=== PATIENT | male | born 1965 | race Hispanic/Latino ===

== ENCOUNTER 2020-02-11 15:18 | Inpatient (IN) | payer SELFPAY ==
[~2020-02-11] VITALS: Ht 175.3 cm; Wt 122.5 kg
[2020-02-11 15:53] LABS: BASOPHILS % (AUTO) 0.3 % (0.0-5.0); EOSINOPHILS % (AUTO) 3.2 % (0.0-8.0); HEMATOCRIT 44.6 % (42-54); LYMPHOCYTES % (AUTO) 27.7 % (21.0-51.0); MEAN CORPUSCULAR HEMOGLOBIN 29.5 pg (27.0-33.0); MEAN CORPUSCULAR HGB CONC 33.6 g/dL (32.0-36.0); MEAN CORPUSCULAR VOLUME 87.8 fL (79-99); MONOCYTES % (AUTO) 8.1 % (3.0-13.0); NEUTROPHILS % (AUTO) 60.4 % (40.0-77.0); PLATELET COUNT (AUTO) 213 K/uL (130-400); RED BLOOD CELL COUNT(AUTO) 5.08 MIL/uL (4.50-6.20); RED CELL DISTRIBUTION WIDTH 12.6 % (11.0-15.5); WHITE BLOOD COUNT (AUTO) 7.8 K/uL (4.8-10.8)
[2020-02-11] MEDS ORDERED: LABETALOL 20 MG/4 ML DISP.SYRIN IV ONE (16:00)
[2020-02-11 16:12] LABS: INR 0.92 (0.85-1.15)
[2020-02-11 16:14] LABS: ALBUMIN 3.9 g/dL (3.5-5.0); BILIRUBIN,TOTAL 0.4 mg/dL (0.2-1.0); TOTAL PROTEIN, SERUM 8.3 g/dL (6.0-8.3)
[2020-02-11 16:47] LABS: APPEARANCE,URINE Clear (CLEAR); BILIRUBIN,URINE Negative (NEGATIVE); COLOR,URINE Yellow (YELLOW); GLUCOSE, URINE (UA) Negative (NEGATIVE); KETONES,URINE Negative (NEGATIVE); LEUKOCYTE ESTERASE ,URINE Negative (NEGATIVE); NITRATE,URINE Negative (NEGATIVE); OCCULT BLOOD,URINE Negative (NEGATIVE); PH,URINE 6.5 (5.0-8.0); PROTEIN,URINE Negative (NEGATIVE)
[2020-02-11] MEDS ORDERED: ASPIRIN 325 MG TABLET ONE (18:01)
[2020-02-11] MEDS ORDERED: ATORVASTATIN CALCIUM 20 MG TABLET PO SCH (18:45)
[2020-02-11] MEDS ORDERED: CLOPIDOGREL BISULFATE 75 MG TAB PO SCH (18:45)
[2020-02-11] MEDS ORDERED: NITROGLYCERIN 0.4 MG SL TAB SL PRN (19:00)
[2020-02-11] MEDS ORDERED: ONDANSETRON HCL 4 MG/2 ML VIAL IV PRN (19:00)
[2020-02-11] MEDS ORDERED: ACETAMINOPHEN 325 MG TAB PO PRN (19:00)
[2020-02-11] MEDS ORDERED: LACTULOSE 20 GM/30 ML UDCUP PO PRN (19:00)
[2020-02-11 19:07] LABS: AMPHET/METH SCREEN,URINE NEGATIVE (NEGATIVE); BARBITURATE SCREEN, URINE NEGATIVE (NEGATIVE); BENZODIAZEPINES SCREEN,URINE NEGATIVE (NEGATIVE); CANNABINOID SCREEN,URINE NEGATIVE (NEGATIVE); COCAINE SCREEN,URINE NEGATIVE (NEGATIVE); OPIATE SCREEN,URINE NEGATIVE (NEGATIVE); PHENCYCLIDINE SCREEN,URINE NEGATIVE (NEGATIVE)
[2020-02-11] MEDS ORDERED: ATORVASTATIN CALCIUM 40 MG TABLET ONE (21:15)
[2020-02-11] MEDS ORDERED: HYDRALAZINE HCL 20 MG/ML VIAL IV PRN (21:30)
--- NOTE | 2020-02-11 22:30 | NUR ---
PT ARRIVED TO ROOM 228 VIA WHEELCHAIR. DENIES ANY CHEST PAIN. PT HAS LEFT SIDED WEAKNESS. BED TO LOWEST LEVEL. APPLIED YELLOW BRACELET FOR FALL RISK D/T PT STATED HE FELL DOWN THURSDAY 02/08 AND TODAY 02/10 D/T THE LEFT SIDED WEAKNESS. CALL LIGHT WITHIN REACH. BP 159/82 SINUS FRAN 50s.
--- NOTE | 2020-02-11 23:00 | NUR ---
NO HOME MEDS.
[2020-02-12] VITALS (7 sets, daily range): BP systolic 138–180; BP diastolic 74–89
--- NOTE | 2020-02-12 04:00 | NUR ---
BP 189/80 SINUS FARN 50s APRESOLINE 10MG/0.5ML GIVEN VIA IV LINE. PT DENIES ANY DIZZINESS, DENIES ANY CHEST PAIN. PT STATES HE HEARS RINGING IN HIS EARS.
[2020-02-12 04:25] LABS: BASOPHILS % (AUTO) 0.4 % (0.0-5.0); EOSINOPHILS % (AUTO) 2.6 % (0.0-8.0); HEMATOCRIT 42.4 % (42-54); LYMPHOCYTES % (AUTO) 33.9 % (21.0-51.0); MEAN CORPUSCULAR HEMOGLOBIN 29.1 pg (27.0-33.0); MEAN CORPUSCULAR VOLUME 88.1 fL (79-99); MONOCYTES % (AUTO) 6.5 % (3.0-13.0); NEUTROPHILS % (AUTO) 56.5 % (40.0-77.0); PLATELET COUNT (AUTO) 198 K/uL (130-400); RED BLOOD CELL COUNT(AUTO) 4.81 MIL/uL (4.50-6.20); RED CELL DISTRIBUTION WIDTH 12.8 % (11.0-15.5); WHITE BLOOD COUNT (AUTO) 8.2 K/uL (4.8-10.8)
[2020-02-12] MEDS: ATORVASTATIN CALCIUM 40 MG TABLET PO SCH ×2 (04:30→20:07)
[2020-02-12] MEDS: FAMOTIDINE/PF 20 MG/2 ML VIAL IV SCH ×3 (04:30→20:07)
[2020-02-12 04:36] LABS: HEMOGLOBIN A1C 5.7 % (4.0-6.0)
[2020-02-12 04:46] LABS: ALBUMIN 3.7 g/dL (3.5-5.0); BILIRUBIN,TOTAL 0.5 mg/dL (0.2-1.0); CREATININE 0.8 mg/dL (0.5-1.5); POTASSIUM 3.7 mmol/L (3.5-5.1); THYROID STIMULATING HORMONE 0.04 uIU/mL (0.36-3.74); TOTAL PROTEIN, SERUM 7.9 g/dL (6.0-8.3)
--- NOTE | 2020-02-12 05:00 | NUR ---
BP 158/80 SINUS FRAN 50s ASYMPTOMATIC
[2020-02-12] MEDS ORDERED: ASPIRIN 81MG TAB.CHEW PO SCH (09:00)
--- NOTE | 2020-02-12 10:15 | NUR ---
DYSPHAGIA EVAGA WELLS. -S/S OF ASPIRATION. RECOMMEND REGULAR SOLIDS, THIN LIQUIDS, AND PILLS WHOLE WITH LIQUIDS. Addendum: 02/12/[address]SHMI EJRNIGAN Amended: Links added.
[2020-02-12] MEDS: ASPIRIN 81MG TAB.CHEW PO SCH (10:45)
[2020-02-12] MEDS: CLOPIDOGREL BISULFATE 75 MG TAB PO SCH (10:46)
[2020-02-12] MEDS: LISINOPRIL 5 MG TABLET PO SCH (10:47)
--- NOTE | 2020-02-12 12:04 | NUR ---
INITIAL: Met with pt this afternoon to discuss dcp. Pt mentions that he lives alone. Prior to admission was independent w ambulation and ADLs. 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 Per pt he feels safe and comfortable to return home at ne. Discussed with him $4 prescription medication discount program at [facility] or [facility]. Discussed w pt also [facility] such as [facility] or [facility] Per pt he has been to [facility] to apply [facility] to [facility] to follow and wait for Md recommendations. Addendum: 02/13/20 at 1214 by STEVE ZAMAN CM Amended: Links added.
[2020-02-12] MEDS ORDERED: ALPRAZOLAM 0.5 MG TABLET PO SCH (19:30)
--- NOTE | 2020-02-12 20:00 | NUR ---
PT ANXIOUS DUE TO WANTING TO SMOKE. WANTS TO GO HOME DUE TO THIS. INFORMED [employer]. NEW ONE TIME ORDER FOR XANAX 0.5MG.
[2020-02-13] VITALS (7 sets, daily range): BP systolic 121–161; BP diastolic 66–96
[2020-02-13 04:53] LABS: BASOPHILS % (AUTO) 0.4 % (0.0-5.0); EOSINOPHILS % (AUTO) 2.8 % (0.0-8.0); HEMATOCRIT 42.3 % (42-54); LYMPHOCYTES % (AUTO) 28.8 % (21.0-51.0); MEAN CORPUSCULAR HEMOGLOBIN 29.9 pg (27.0-33.0); MEAN CORPUSCULAR HGB CONC 33.3 g/dL (32.0-36.0); MEAN CORPUSCULAR VOLUME 89.8 fL (79-99); MONOCYTES % (AUTO) 8.1 % (3.0-13.0); NEUTROPHILS % (AUTO) 59.5 % (40.0-77.0); PLATELET COUNT (AUTO) 196 K/uL (130-400); RED BLOOD CELL COUNT(AUTO) 4.71 MIL/uL (4.50-6.20); RED CELL DISTRIBUTION WIDTH 12.9 % (11.0-15.5); WHITE BLOOD COUNT (AUTO) 8.4 K/uL (4.8-10.8)
[2020-02-13 05:16] LABS: ALBUMIN 3.6 g/dL (3.5-5.0); BILIRUBIN,TOTAL 0.5 mg/dL (0.2-1.0); CREATININE 0.9 mg/dL (0.5-1.5); POTASSIUM 3.9 mmol/L (3.5-5.1); TOTAL PROTEIN, SERUM 7.7 g/dL (6.0-8.3)
[2020-02-13] MEDS: NICOTINE 21 MG/ 24 HR PATCH TD SCH ×2 (07:58→09:00)
[2020-02-13] MEDS: LISINOPRIL 5 MG TABLET PO SCH ×2 (09:00→10:57)
[2020-02-13] MEDS: ASPIRIN 81MG TAB.CHEW PO SCH (09:58)
[2020-02-13] MEDS: CLOPIDOGREL BISULFATE 75 MG TAB PO SCH (09:58)
[2020-02-13] MEDS: FAMOTIDINE/PF 20 MG/2 ML VIAL IV SCH ×2 (09:58→19:57)
[2020-02-13] MEDS ORDERED: IPRATROPIUM/ALBUTEROL SULFATE 3 ML SOLUTION IH ONE (17:07)
[2020-02-13] MEDS: ATORVASTATIN CALCIUM 40 MG TABLET PO SCH (19:57)
[2020-02-14 04:02] VITALS: BP 157/73
[2020-02-14 04:35] LABS: BASOPHILS % (AUTO) 0.2 % (0.0-5.0); EOSINOPHILS % (AUTO) 2.4 % (0.0-8.0); HEMATOCRIT 44.6 % (42-54); LYMPHOCYTES % (AUTO) 32.3 % (21.0-51.0); MEAN CORPUSCULAR HGB CONC 32.5 g/dL (32.0-36.0); MEAN CORPUSCULAR VOLUME 89.2 fL (79-99); MONOCYTES % (AUTO) 7.8 % (3.0-13.0); NEUTROPHILS % (AUTO) 57.1 % (40.0-77.0); PLATELET COUNT (AUTO) 197 K/uL (130-400); RED CELL DISTRIBUTION WIDTH 12.6 % (11.0-15.5); WHITE BLOOD COUNT (AUTO) 8.7 K/uL (4.8-10.8)
[2020-02-14 05:08] LABS: ALBUMIN 3.9 g/dL (3.5-5.0); BILIRUBIN,TOTAL 0.7 mg/dL (0.2-1.0); CREATININE 0.8 mg/dL (0.5-1.5); POTASSIUM 3.9 mmol/L (3.5-5.1); TOTAL PROTEIN, SERUM 8.3 g/dL (6.0-8.3)
[2020-02-14 07:00] VITALS: BP 161/77
[2020-02-14] MEDS: FAMOTIDINE/PF 20 MG/2 ML VIAL IV SCH (09:49)
[2020-02-14] MEDS: ASPIRIN 81MG TAB.CHEW PO SCH (09:50)
[2020-02-14] MEDS: LISINOPRIL 5 MG TABLET PO SCH (09:50)
[2020-02-14] MEDS: CLOPIDOGREL BISULFATE 75 MG TAB PO SCH (09:51)
[2020-02-14] MEDS: NICOTINE 21 MG/ 24 HR PATCH TD SCH (09:53)
[2020-02-14 11:00] VITALS: BP 159/75
[2020-02-14] MEDS ORDERED: HYDROCHLOROTHIAZIDE 25 MG TABLET PO SCH (11:15)
[2020-02-14] MEDS ORDERED: CLOP75TA14 PO (11:36)
[2020-02-14] MEDS ORDERED: LISI10TA7 PO (11:36)
[2020-02-14] MEDS ORDERED: HYDR25TA PO (11:36)
[2020-02-14] MEDS ORDERED: ATOR40TA69 PO (11:36)
[2020-02-14] MEDS ORDERED: ASPI-1005 PO (11:36)
[2020-02-15] MEDS ORDERED: HYDROCHLOROTHIAZIDE 25 MG TABLET PO SCH (09:00)
== END 2020-02-14 13:07 | disposition home or self-care (01) | DRG 65 ==
LOC: EDH 15:18 → EDHIP 15:19 → 2DH 22:17
PROVIDERS: ADMIT Hospitalist; ATTEND Hospitalist
DX: I63.9 Cerebral infarction, unspecified (principal); G81.94 Hemiplegia, unspecified affecting left nondominant side; I16.0 Hypertensive urgency; E78.5 Hyperlipidemia, unspecified; E66.9 Obesity, unspecified; F17.210 Nicotine dependence, cigarettes, uncomplicated; I10 Essential (primary) hypertension; R29.810 Facial weakness; Z68.39 Body mass index [BMI] 39.0-39.9, adult; Z91.19 Patient's noncompliance with other medical treatment and regimen
CPT/HCPCS: 36415; 70450; 70544; 70547; 70551; 80053; 80061; 80305; 81003; 82550; 83036; 84443; 84484; 85025; 85610; 85730; 92610; 93005; 93306; 93356; 93880; G0378; J0360; J3490

== ENCOUNTER 2020-03-12 16:44 | Emergency (ER) | payer OTHER ==
[~2020-03-12 16:44] MED LIST: ASPI-1005 PO; ATOR40TA69 PO; CLOP75TA14 PO; HYDR25TA PO; LISI10TA7 PO
[2020-03-12 16:58] LABS: BASOPHILS % (AUTO) 0.2 % (0.0-5.0); HEMATOCRIT 39.4 % (42-54); LYMPHOCYTES % (AUTO) 16.6 % (21.0-51.0); MEAN CORPUSCULAR HEMOGLOBIN 29.2 pg (27.0-33.0); MEAN CORPUSCULAR HGB CONC 34.3 g/dL (32.0-36.0); MEAN CORPUSCULAR VOLUME 85.1 fL (79-99); MONOCYTES % (AUTO) 5.7 % (3.0-13.0); NEUTROPHILS % (AUTO) 76.1 % (40.0-77.0); PLATELET COUNT (AUTO) 238 K/uL (130-400); RED BLOOD CELL COUNT(AUTO) 4.63 MIL/uL (4.50-6.20); RED CELL DISTRIBUTION WIDTH 12.5 % (11.0-15.5); WHITE BLOOD COUNT (AUTO) 13.6 K/uL (4.8-10.8)
[2020-03-12 17:09] LABS: CREATININE 1.8 mg/dL (0.5-1.5); POTASSIUM 3.9 mmol/L (3.5-5.1)
[2020-03-12 17:12] LABS: INR 0.97 (0.85-1.15); PARTIAL THROMBOPLASTIN TIME 25.9 SEC (26.3-35.5); PROTHROMBIN TIME 10.5 SEC (9.6-11.6)
[2020-03-12 17:14] LABS: ALBUMIN 4.3 g/dL (3.5-5.0); BILIRUBIN,TOTAL 0.5 mg/dL (0.2-1.0); TOTAL PROTEIN, SERUM 8.3 g/dL (6.0-8.3)
[2020-03-12] MEDS ORDERED: ACETAMINOPHEN 325 MG TAB ONE (18:31)
== END 2020-03-12 20:45 | disposition home or self-care (01) ==
LOC: EDH 16:44
DX: R55 Syncope and collapse (principal); R73.9 Hyperglycemia, unspecified; N28.9 Disorder of kidney and ureter, unspecified; I10 Essential (primary) hypertension; E78.00 Pure hypercholesterolemia, unspecified; Z86.73 Personal history of transient ischemic attack (TIA), and cerebral infarction without residual deficits; Z79.899 Other long term (current) drug therapy
CPT/HCPCS: 36415; 70450; 71045; 80053; 82550; 84484; 85025; 85610; 85730; 93005

== ENCOUNTER 2020-03-27 14:58 | Emergency (ER) | payer OTHER ==
[2020-03-27 15:15] LABS: BASOPHILS % (AUTO) 0.3 % (0.0-5.0); EOSINOPHILS % (AUTO) 1.3 % (0.0-8.0); HEMATOCRIT 37.7 % (42-54); LYMPHOCYTES % (AUTO) 20.1 % (21.0-51.0); MEAN CORPUSCULAR HEMOGLOBIN 29.9 pg (27.0-33.0); MEAN CORPUSCULAR HGB CONC 34.5 g/dL (32.0-36.0); MEAN CORPUSCULAR VOLUME 86.7 fL (79-99); MONOCYTES % (AUTO) 6.6 % (3.0-13.0); NEUTROPHILS % (AUTO) 71.2 % (40.0-77.0); PLATELET COUNT (AUTO) 223 K/uL (130-400); RED BLOOD CELL COUNT(AUTO) 4.35 MIL/uL (4.50-6.20); RED CELL DISTRIBUTION WIDTH 12.3 % (11.0-15.5); WHITE BLOOD COUNT (AUTO) 10.3 K/uL (4.8-10.8)
[2020-03-27 15:25] LABS: CREATININE 0.9 mg/dL (0.5-1.5); INR 0.97 (0.85-1.15); PARTIAL THROMBOPLASTIN TIME 27.3 SEC (26.3-35.5); POTASSIUM 3.8 mmol/L (3.5-5.1); PROTHROMBIN TIME 10.5 SEC (9.6-11.6)
[2020-03-27 15:30] LABS: BILIRUBIN,TOTAL 0.3 mg/dL (0.2-1.0); TOTAL PROTEIN, SERUM 8.1 g/dL (6.0-8.3)
== END 2020-03-27 19:23 | disposition home or self-care (01) ==
LOC: EDH 14:58
DX: R07.89 Other chest pain (principal); I10 Essential (primary) hypertension; E78.00 Pure hypercholesterolemia, unspecified; Z87.891 Personal history of nicotine dependence; Z79.899 Other long term (current) drug therapy
CPT/HCPCS: 36415; 71045; 80053; 82550; 84484; 85025; 85610; 85730; 93005

== ENCOUNTER 2023-03-31 12:01 | Emergency (ER) | payer OTHER, MEDICARE ==
[~2023-03-31] VITALS: Ht 175.3 cm; Wt 134.7 kg
[~2023-03-31 12:01] MED LIST changes: +CLOP-31 PO; -CLOP75TA14 PO; +LISI10TA24 PO; -LISI10TA7 PO
[2023-03-31] MEDS ORDERED: MORPHINE 4 MG SYG IVP ONE (12:30)
[2023-03-31] MEDS ORDERED: ASPIRIN 325MG TAB PO ONE (12:30)
[2023-03-31] MEDS ORDERED: ONDANSETRON 4MG INJ IVP ONE (12:30)
[2023-03-31 12:32] LABS: BASOPHILS % (AUTO) 0.2 % (0.0-5.0); EOSINOPHILS % (AUTO) 2.5 % (0.0-8.0); HEMATOCRIT 42.1 % (42-54); LYMPHOCYTES % (AUTO) 28.1 % (21.0-51.0); MEAN CORPUSCULAR HEMOGLOBIN 29.6 pg (27.0-33.0); MEAN CORPUSCULAR HGB CONC 34.2 g/dL (32.0-36.0); MEAN CORPUSCULAR VOLUME 86.4 fL (79-99); MONOCYTES % (AUTO) 6.7 % (3.0-13.0); PLATELET COUNT (AUTO) 209 K/uL (130-400); RED BLOOD CELL COUNT(AUTO) 4.87 MIL/uL (4.50-6.20); RED CELL DISTRIBUTION WIDTH 13.3 % (11.0-15.5); WHITE BLOOD COUNT (AUTO) 10.2 K/uL (4.8-10.8)
[2023-03-31 12:54] LABS: ALBUMIN 4.2 g/dL (3.5-5.0); CREATININE 0.9 mg/dL (0.5-1.5); POTASSIUM 3.8 mmol/L (3.5-5.1); TOTAL PROTEIN, SERUM 8.5 g/dL (6.0-8.3)
[2023-03-31 13:06] LABS: APPEARANCE,URINE CLEAR (CLEAR); BILIRUBIN,URINE NEGATIVE (NEGATIVE); COLOR,URINE COLORLESS (YELLOW); GLUCOSE, URINE (UA) TRACE mg/dL (NEGATIVE); KETONES,URINE NEGATIVE (NEGATIVE); LEUKOCYTE ESTERASE ,URINE NEGATIVE Leu/uL (NEGATIVE); NITRATE,URINE NEGATIVE (NEGATIVE); OCCULT BLOOD,URINE NEGATIVE (NEGATIVE); PROTEIN,URINE NEGATIVE (NEGATIVE); UROBILINOGEN,URINE 0.2 mg/dL (0.2-1.0)
[2023-03-31 13:15] LABS: MAGNESIUM 2.1 mg/dL (1.80-2.40)
[2023-03-31 13:25] VITALS: BP 129/65
== END 2023-03-31 14:37 | disposition home or self-care (01) ==
LOC: EDH 12:01
DX: R07.9 Chest pain, unspecified (principal); I10 Essential (primary) hypertension; Z79.899 Other long term (current) drug therapy; Z86.73 Personal history of transient ischemic attack (TIA), and cerebral infarction without residual deficits
CPT/HCPCS: 99285; 96374; 71045; 96375; 83735; 84484 ×2; 80053; 83880; 83690; 85025; 81001; 36415; 93005; J2405; J2270